=== PATIENT | female | born 1985 | race Caucasian/White ===

== ENCOUNTER 2024-11-20 17:23 | Outpatient (CLI) | payer BC ==
[2024-11-20 18:18] LABS: Appearance,Urine Clear (Clear); Bacteria,Urine Occasional /hpf; Bilirubin,Urine Negative (Negative); Blood,Urine Negative (Negative); Budding Yeast,Urine Occasional /hpf; Color,Urine Colorless; Glucose,Urine (UA) Negative (Negative); Ketones,Urine Negative (Negative); Leukocyte Esterase,Urine Trace (Negative); Mucus,Urine Rare /hpf; Nitrite,Urine Negative (Negative); Protein,Urine Negative (Negative); RBC,Urine 5 /hpf (0-5); Specific Gravity,Urine 1.009 (1.001-1.035); Squamous Epithelial Cell,Urine 1 /hpf (0-4); Urobilinogen,Urine <2.0 mg/dL (<2.0); WBC,Urine 3 /hpf (0-5)
[2024-11-20 18:34] LABS: Creatinine,Urine Random 52.4 mg/dL; Protein/Creatinine Ratio,Urine 0.248
[2024-11-20 18:48] LABS: Basophils # (A) 0.07 10*3/uL (0.00-0.10); Basophils % (A) 0.4 %; Eosinophils # (A) 0.27 10*3/uL (0.04-0.35); Eosinophils % (A) 1.7 %; HCT 34.9 % (37.2-46.3); Lymphocytes % (A) 19.4 %; MCH 31.5 pg (27.0-32.0); MCHC 34.4 g/dL (32.0-37.0); MCV 91.6 fL (80.0-97.0); Mean Platelet Volume 11.1 fL (9.5-12.2); Monocytes # (A) 1.03 10*3/uL (0.20-1.00); Monocytes % (A) 6.5 %; Neutrophils # (A) 11.21 10*3/uL (1.80-7.70); Neutrophils % (A) 70.4 %; Platelet Count 207 10*3/uL (140-440); RBC 3.81 10*6/uL (4.10-5.20); RDW 13.2 % (11.5-14.5); WBC 15.94 10*3/uL (4.50-10.00)
[2024-11-20 18:55] LABS: ALT 16 U/L (4-34); AST 17 U/L (14-36); African American GFR (CKD) >90 (>60 ml/min/1.73 sqM); Blood Urea Nitrogen 8 mg/dL (7-17); LDH 130 U/L (120-246); Non-African American GFR(CKD) >90 (>60 ml/min/1.73 sqM); Uric Acid 5.2 mg/dL (3.7-7.4)
[2024-11-20 19:02] LABS: INR 0.8 (<1.2); Partial Thromboplastin Time 21.5 sec (22.0-30.0); Prothrombin Time 9.6 sec (10.0-12.5)
[2024-11-20 20:25] VITALS: BP 155/89; PULSE 75; RESP 16; TEMP 98.2
--- NOTE | 2024-12-15 15:02 | P.MSEPDOC ---
Presenting Problems - Arrival Data Date of Arrival on Unit: 11/20/24 Time of Arrival on Unit: 17:23 Mode of Transport: Ambulatory - Complaint OB-Reason for Admission/Chief Complaint: Decreased Movement Comment: Pt states she last felt movement yesterday afternoon. Pt states she has GDM diet controlled and b/p slightly elevated in office last appt but nothing further was needed at that time. Medical History - Information : 5 Para: 0 Term: 0 : 0 Abortions: Spontaneous or Elective: 4 Number of Living Children: 0 - Gestational Age Gestational Age by FRANK (wks/days): 29 Weeks and 2 Days - History Complications: GDM Review of Systems - Review of Systems Constitutional: No problems Breast: No problems ENT: No problems Cardiovascular: No problems Respiratory: No problems Gastrointestinal: No problems Genitourinary: No problems Musculoskeletal: No problems Neurological: No problems Skin: No problems Vital Signs - Temperature Temperature: 98.2 F Temperature Source: Temporal Artery Scan - Pulse Pulse Oximetery Pulse Rate: 75 Pulse Assessment Method: Pulse Oximetry - Respirations Respiratory Rate: 16 Oxygen Delivery Method: Room Air - Blood Pressure Right Arm Blood Pressure: 155/89 Blood Pressure Mean: 111 Blood Pressure Source: Automatic Cuff Medical Screen Scoring - Cervical Exam Membranes: Intact - Uterine Contractions Intensity: Absent Resting: Soft to palpation - Assessment - Baby A Baseline FHR: 155 Heart Rate - NICHD Category: Category I (Normal) NST: Reactive Physician Notification - Physician Notified Physician Notified Date: 11/20/24 Physician Notified Time: 17:55 Physician: Yakelin Davis Maternal Triage Index - Maternal Triage Index Presenting for scheduled procedure w/no complaint: No - Stat/Priority 1 Stat Priority 1: No - Urgent/Priority 2 Urgent Priority 2: Yes Provider Notified: Yakelin Davis Provider Notified Time: 17:55 Criteria Met for Priority 2: Pt states she last felt movement yesterday afternoon. Pt states she has GDM diet controlled and b/p slightly elevated in office last appt but nothing further was needed at that time. Disposition - Disposition OB Disposition: Discharge to home Discharge Date: 11/20/24 Discharge Time: 19:14 I agree with the RN Medical Screening Exam: Yes Physician's MSE Comment: I have neither seen nor examined the patient Case reviewed; plan agreed upon as documented in EMR&OBIX.: Yes Diagnosis: RELATED CONDITIONS, UNSPECIFIED, THIRD TRIMESTER
== END 2024-11-20 19:14 | disposition home or self-care (01) ==
LOC: FBPOP 17:23
PROVIDERS: ATTEND Obstetrics & Gynecology Obstetrics
DX: O26.893 Other specified pregnancy related conditions, third trimester (principal); Z3A.29 29 weeks gestation of pregnancy
CPT/HCPCS: 59025; 81001; 82565; 82570; 83615; 84156; 84450; 84460; 84520; 84550; 85025; 85384; 85610; 85730; 99213

== ENCOUNTER 2025-01-18 10:30 | Inpatient (IN) | payer BC ==
[2025-01-18] MEDS ORDERED: hydrALAZINE HCL 20 MG/ML 1 ML VIAL IVP PRN (11:01)
[2025-01-18] MEDS ORDERED: LABETALOL 5 MG/ML VIAL MDV IVP PRN ×4 (11:01→15:50)
[2025-01-18] MEDS: LABETALOL 5 MG/ML VIAL MDV IVP PRN ×2 (11:20→11:57)
[2025-01-18 11:22] LABS: Basophils # (A) 0.05 10*3/uL (0.00-0.10); Basophils % (A) 0.4 %; Eosinophils # (A) 0.13 10*3/uL (0.04-0.35); Eosinophils % (A) 0.9 %; HCT 37.3 % (37.2-46.3); HGB 12.9 g/dL (12.0-15.0); Lymphocytes # (A) 2.51 10*3/uL (0.90-5.00); Lymphocytes % (A) 18.1 %; MCH 31.2 pg (27.0-32.0); MCHC 34.6 g/dL (32.0-37.0); MCV 90.1 fL (80.0-97.0); Monocytes # (A) 0.83 10*3/uL (0.20-1.00); Monocytes % (A) 6.0 %; Neutrophils # (A) 10.11 10*3/uL (1.80-7.70); Neutrophils % (A) 72.9 %; Platelet Count 183 10*3/uL (140-440); RBC 4.14 10*6/uL (4.10-5.20); RDW 13.8 % (11.5-14.5); WBC 13.86 10*3/uL (4.50-10.00)
[2025-01-18 11:26] LABS: Glucose,Whole Blood 80 mg/dL (70-110)
[2025-01-18 11:40] LABS: Bacteria,Urine Rare /hpf; Bilirubin,Urine Negative (Negative); Blood,Urine Large (Negative); Color,Urine Yellow; Glucose,Urine (UA) Negative (Negative); Hyaline Casts,Urine 1 /lpf (0-2); Ketones,Urine Trace (Negative); Leukocyte Esterase,Urine Trace (Negative); Mucus,Urine Rare /hpf; Nitrite,Urine Negative (Negative); PH, Urine 7.0 (5.0-8.0); Protein,Urine Trace (Negative); RBC,Urine >182 /hpf (0-5); Specific Gravity,Urine 1.007 (1.001-1.035); Squamous Epithelial Cell,Urine <1 /hpf (0-4); Urobilinogen,Urine <2.0 mg/dL (<2.0); WBC,Urine 8 /hpf (0-5)
[2025-01-18 11:47] LABS: INR 0.8 (<1.2); Prothrombin Time 9.4 sec (10.0-12.5)
[2025-01-18 11:56] LABS: ALT 15 U/L (4-34); African American GFR (CKD) >90 (>60 ml/min/1.73 sqM); Non-African American GFR(CKD) >90 (>60 ml/min/1.73 sqM); Uric Acid 5.9 mg/dL (3.7-7.4)
[2025-01-18 12:03] LABS: Partial Thromboplastin Time 20.9 sec (22.0-30.0)
[2025-01-18] MEDS ORDERED: METHYLERGONOVINE 0.2 MG/ML 1 ML AMP IM PRN (12:04)
[2025-01-18] MEDS ORDERED: OXYTOCIN 10 UNIT/ML 1 ML VIAL IM PRN (12:04)
[2025-01-18] MEDS ORDERED: CARBOPROST TROMETHAMINE 250 MCG/ML 1 ML AMP IM PRN (12:04)
[2025-01-18] MEDS ORDERED: TRANEXAMIC 1,000 MG/100ML-NACL 1,000 MG in EMPTY BAG 1 BAG IV PRN (12:04)
[2025-01-18 12:08] LABS: Magnesium 1.6 mg/dL (1.6-2.3)
[2025-01-18 12:09] LABS: AST 27 U/L (14-36); LDH 244 U/L (120-246)
[2025-01-18] MEDS: LABETALOL 200 MG TAB PO STA ×2 (12:13→20:17)
[2025-01-18] MEDS ORDERED: OXYTOCIN 30 UNITS/500 ML NS 30 UNIT in SALINE 1 500ML.BAG IV SCH (12:15)
[2025-01-18] MEDS: CITRIC ACID-SODIUM CITRATE 15 ML CUP PO ONE (12:16)
[2025-01-18] MEDS ORDERED: ONDANSETRON 4 MG/2 ML VIAL ONE (12:21)
[2025-01-18] MEDS ORDERED: OXYTOCIN 30 UNITS/500 ML NS BAG IV ONE (12:21)
[2025-01-18] MEDS ORDERED: NALBUPHINE (ANES) 10 MG/ML - 1 ML AMP ONE (12:21)
[2025-01-18] MEDS ORDERED: MORPHINE SULFATE (PF) 0.3 MG/0.3 ML SYR ONE (12:21)
[2025-01-18] MEDS ORDERED: PHENYLEPHRINE-0.9% NACL SYG 1,000 MCG/10 ML SYRINGE ONE (12:21)
[2025-01-18 12:28] LABS: Protein/Creatinine Ratio,Urine 2.312
[2025-01-18] MEDS ORDERED: ZOLPIDEM 5 MG TAB PO PRN (13:10)
[2025-01-18] MEDS ORDERED: NALOXONE 0.4 MG/ML 1 ML VIAL IV PRN (13:10)
[2025-01-18] MEDS ORDERED: diphenhydrAMINE 50 MG/ML 1 ML VIAL IVP PRN ×2 (13:10)
[2025-01-18] MEDS ORDERED: diphenhydrAMINE 25 MG CAP PO PRN (13:10)
[2025-01-18] MEDS ORDERED: SIMETHICONE 80 MG CHEWABLE PO PRN (13:10)
--- NOTE | 2025-01-18 13:35 | P.OP ---
Date of Procedure: 01/18/25 Preoperative Diagnosis: IUP at 37-5/7 weeks, preeclampsia with severe features, AMA, GDM A1 Postoperative Diagnosis: Same Procedure(s) Performed: Primary low-transverse section Anesthesia: spinal Surgeon: Inga Mcneill Management Psychologist #1: Andi Fenton Estimated Blood Loss (ml): 391 IV fluids (ml): 1,400 Urine output (ml): 50 (clear yellow) Pathology: other (Placenta) Condition: stable Disposition: observation Indications for Procedure: 39-year-old 5 para 0 at 37-5/7 weeks seen in the office today for routine visit with elevated blood pressures of 150/90. She was seen in OB triage with noted elevated blood pressures 150s to 200s over 100s. Patient denies signs or symptoms of preeclampsia. Preeclampsia labs were noted to be negative. Patient was counseled on blood pressures in severe range and unfavorable cervix. Patient and significant other were counseled on recommendation for primary secondary to preeclampsia with severe features and unfavorable cervix. Magnesium GTT is discussed and questions are answered. Via patient centered decision making decision was made to proceed with primary low-transverse section Operative Findings: Viable male infant delivered at 1244, weight of 7 pounds 8 ounces Description of Procedure: The patient was prepped and draped in the usual fashion after spinal anesthesia was administered by the anesthesia department. A Pfannenstiel incision was made and extended of the abdominal cavity without difficulty. The bladder peritoneum was elevated and incised and reflected distally. A 2 cm incision was made in the transverse plane of the lower uterine segment to enter the uterus at which time clear fluid was noted. The incision was extended in both directions using the bandage scissors. The head was encountered within the field and delivered up and through the incision where the nose and mouth were thoroughly suctioned. Remainder of the infant was delivered onto the surgical field where the cord was doubly clamped, cut, and the infant was passed for resuscitative measures with weight noted above. The placenta was delivered manually, intact, and was grossly normal with a grossly normal three-vessel cord. The uterus was exteriorized and the interior cavity of the uterus swept of any remaining placental and membranous fragments with a laparotomy sponge. The margins of the incision were grasped with Allis clamps and the incision closed in 2 layers. First layer was a running locking layer of 0 Vicryl from margin to margin followed by a second layer of imbricating 0 Vicryl from margin to margin. Any small points of bleeding were then made hemostatic with the Bovie. Once hemostasis was achieved, the posterior cul-de-sac was suctioned with a guard and the uterine and ovarian findings are as noted above. The uterus was replaced within the abdominal cavity and the gutters swept of any remaining blood fluid or clot. The incision was again reexamined and hemostasis was noted to be excellent. Any small point of bleeding were made hemostatic with the Bovie. Once hemostasis was achieved the parietal peritoneum was loosely reapproximated. The layer of muscles were examined and made hemostatic with the Bovie. Attention was then turned to the fascia which was closed with 2 running stitches of 0 Vicryl in a running fashion from 1 lateral edge to the other. The subcutaneous tissues were irrigated, made hemostatic with the Bovie, and reapproximated with a running stitch of 30 Vicryl. The skin was reapproximated with Vicryl. Estimated blood loss for the case was approximately 391 mL. All sponge instrument and needle counts are correct. There were no complications. The patient tolerated the procedure well and proceeded to the recovery room in stable condition. Both mother and are resting comfortably in recovery.
--- NOTE | 2025-01-18 13:36 | P.HPOB ---
History of Present Illness H&P Date: 01/18/25 Chief Complaint: IUP @ 37 5/7, sever pre eclampsia 39-year-old 5 para 0-0-4-0 at 37-5/7 weeks at presents to labor and delivery from the office with noted elevated pressures 150/90. Patient denies signs or symptoms of preeclampsia. Upon initial presentation to labor and delivery elevated blood pressures were noted 170s to 200s over high 100s. Patient continues to deny signs or symptoms of preeclampsia. Patient has been receiving routine care which has been complicated by diagnosis of gestational diabetes which has been diet controlled. Patient was examined in OB triage and found to be 1 thick high firm and posterior cervix, unfavorable. On blood work this patient is a blood type of A+, rubella status immune, hepatitis B surface had a negative, HIV negative, RPR is nonreactive, GBS culture negative, hepatitis C antibody nonreactive Review of Systems Constitutional: Denies chills, Denies fatigue, Denies fever Ears, nose, mouth and throat: Denies headache Cardiovascular: Reports leg edema Respiratory: Denies dyspnea Gastrointestinal: Denies nausea, Denies vomiting Genitourinary: Reports Past Medical History History of Any Multi-Drug Resistant Organisms: None Reported Smoking Status: Never smoker Medications and Allergies Home Medications Medication Instructions Recorded Confirmed Type Aspirin 81 mg PO DAILY 11/20/24 01/18/25 History Vit No.179/Iron/Folic 1 tab PO DAILY 11/20/24 01/18/25 History [ Tablet] Allergies Allergy/AdvReac Type Severity Reaction Status Date / Time No Known Allergies Allergy Verified 11/20/24 17:27 Exam Osteopathic Statement: *. No significant issues noted on an osteopathic structural exam other than those noted in the History and Physical/Consult. Vital Signs Temp Pulse Resp BP Pulse Ox 01/18/25 10:36 96.7 F L 67 16 169/109 99 Intake and Output 01/17/25 01/18/25 01/18/25 22:59 06:59 14:59 Other: Weight 98.43 kg Targeted physical exam is performed this date in general is a well-nourished well-developed female in no acute distress, breathing appears nonlabored, abdomen is gravid, heart tones are noted to be category 1 and she is coleen irregularly. Recent blood pressure 175/93 after 20 mg of labetalol IV. Cervical exam per RN 1 thick high vertex presentation no presenting part in the pelvis Results Result Diagrams: 01/18/25 10:55 01/18/25 10:55 Abnormal Lab Results - Last 24 Hours (Table) 01/18/25 01/18/25 Range/Units 10:55 11:06 WBC 13.86 H (4.50-10.00) 10*3/uL Immature Gran # 0.23 H (0.00-0.04) 10*3/uL Neutrophils # 10.11 H (1.80-7.70) 10*3/uL Urine Protein Trace H (Negative) Urine Ketones Trace H (Negative) Urine Blood Large H (Negative) Ur Leukocyte Esterase Trace H (Negative) Urine RBC >182 H (0-5) /hpf Urine WBC 8 H (0-5) /hpf Urine Bacteria Rare H (None) /hpf Urine Mucus Rare H (None) /hpf Assessment and Plan (1) Severe preeclampsia Current Visit: Yes Status: Acute Code(s): O14.10 - SEVERE PRE-ECLAMPSIA, UNSPECIFIED TRIMESTER SNOMED Code(s): 81290836 (2) Term Current Visit: Yes Status: Acute Code(s): Z34.90 - ENCNTR FOR SUPRVSN OF NORMAL , UNSP, UNSP TRIMESTER SNOMED Code(s): 33916600 (3) AMA (advanced maternal age) primigravida 35+ Current Visit: Yes Status: Acute Code(s): O09.519 - SUPERVISION OF ELDERLY PRIMIGRAVIDA, UNSPECIFIED TRIMESTER SNOMED Code(s): 74315791 (4) GDM (gestational diabetes mellitus), class A1 Current Visit: Yes Status: Acute Code(s): O24.410 - GESTATIONAL DIABETES MELLITUS IN , DIET CONTROLLED SNOMED Code(s): 74891871 Plan: 39-year-old 5 para 0 at 37-5/7 weeks admitted with severe preeclampsia. Preeclampsia labs are ordered in addition to protein creatinine ratio. Patient is counseled on blood pressures and unfavorable cervix. Recommendations for primary are discussed. IV magnesium to be begun immediately after section is completed. Questions are answered, patient centered decision making regarding primary C- section. Patient wishes to wait for significant other who should be arriving soon.
[2025-01-18] MEDS: MAGNESIUM SULFATE-WATER PMX 4 GM in WATER FOR INJECTION 1 100ML.BAG IVPB ONE (13:53)
[2025-01-18] MEDS: METOCLOPRAMIDE 5 MG/ML 2 ML VIAL IVP PRN (13:59)
[2025-01-18] MEDS: MAGNESIUM SULFATE-WATER PMX 20 GM in WATER FOR INJECTION 1 500ML.BAG IV SCH (14:18)
[2025-01-18] MEDS: LABETALOL 200 MG TAB PO SCH (16:01)
[2025-01-18] MEDS: hydrALAZINE HCL 20 MG/ML 1 ML VIAL IVP PRN (16:12)
[2025-01-18] MEDS: ACETAMINOPHEN IV (For NPO) 1,000 MG in EMPTY BAG 1 BAG IVPB ONE (16:28)
[2025-01-18] MEDS: LACTATED RINGERS 1,000 ML IV SCH (16:29)
[2025-01-18] MEDS: ONDANSETRON 4 MG/2 ML VIAL IVP PRN (20:16)
[2025-01-18] MEDS: SENNOSIDES-DOCUSATE SODIUM 1 EACH TAB PO SCH (22:15)
[2025-01-18] MEDS: hydrALAZINE HCL 20 MG/ML 1 ML VIAL IVP STA (22:18)
[2025-01-19] MEDS: ACETAMINOPHEN TAB 500 MG TAB PO SCH (02:48)
[2025-01-19] MEDS: IBUPROFEN 800 MG TAB PO SCH (04:53)
[2025-01-19 06:09] LABS: Basophils # (A) 0.06 10*3/uL (0.00-0.10); Basophils % (A) 0.3 %; Eosinophils # (A) 0.01 10*3/uL (0.04-0.35); Eosinophils % (A) 0.0 %; HCT 32.7 % (37.2-46.3); HGB 11.0 g/dL (12.0-15.0); Lymphocytes # (A) 2.16 10*3/uL (0.90-5.00); Lymphocytes % (A) 10.3 %; MCH 31.1 pg (27.0-32.0); MCHC 33.6 g/dL (32.0-37.0); MCV 92.4 fL (80.0-97.0); Monocytes # (A) 1.14 10*3/uL (0.20-1.00); Monocytes % (A) 5.4 %; Neutrophils # (A) 17.40 10*3/uL (1.80-7.70); Neutrophils % (A) 82.9 %; Platelet Count 190 10*3/uL (140-440); RBC 3.54 10*6/uL (4.10-5.20); RDW 13.6 % (11.5-14.5); WBC 21.00 10*3/uL (4.50-10.00)
[2025-01-19 06:21] LABS: ALT 16 U/L (4-34); AST 23 U/L (14-36); African American GFR (CKD) >90 (>60 ml/min/1.73 sqM); Blood Urea Nitrogen 6 mg/dL (7-17); LDH 199 U/L (120-246); Non-African American GFR(CKD) >90 (>60 ml/min/1.73 sqM)
[2025-01-19 07:16] LABS: Magnesium 5.6 mg/dL (1.6-2.3)
[2025-01-19] MEDS: LABETALOL 100 MG TAB PO SCH (08:25)
[2025-01-19] MEDS: PRENATAL VIT-IRON-FOLIC ACID 1 EACH TABLET PO SCH (08:26)
--- NOTE | 2025-01-19 09:30 | P.PNOBGPC ---
Subjective - Subjective Principal diagnosis: Postop day 1, primary section, severe preeclampsia Interval history: Overall patient is doing well. She remains on magnesium GTT. Urine output remains good and clear. Pain is well-controlled. Patient denies nausea or vomiting. 50s to 160s over 80s. Patient remains on labetalol and Procardia. Hydralazine is being used for breakthrough blood pressures 170/100. Lochia is noted to be minimal. Patient reports: Reports appetite normal, Reports voiding normally, Reports pain well controlled, Reports ambulating normally [place]: other (in SCN on oxygen) Objective - Vital Signs Latest vital signs: Vital Signs Temp Pulse Resp BP Pulse Ox 01/19/25 06:00 155/88 01/19/25 05:00 16 166/86 01/19/25 04:00 89 16 166/88 01/19/25 03:00 97.8 F 91 15 168/87 01/19/25 02:00 16 168/87 01/19/25 01:00 89 16 158/80 01/19/25 00:00 98.5 F 82 16 177/88 01/18/25 23:00 82 16 143/87 97 01/18/25 22:00 82 16 178/98 01/18/25 21:00 82 16 172/108 01/18/25 20:00 96.5 F L 72 16 173/103 95 01/18/25 19:00 67 16 157/90 01/18/25 18:00 79 16 158/94 01/18/25 17:00 68 168/91 01/18/25 16:18 60 169/95 01/18/25 16:15 60 167/87 01/18/25 15:12 59 L 16 159/64 98 01/18/25 14:57 145/98 01/18/25 14:42 65 146/85 01/18/25 14:27 61 16 159/83 01/18/25 14:12 64 135/80 01/18/25 13:57 90 16 127/75 01/18/25 13:42 69 16 124/66 98 01/18/25 13:18 73 16 121/63 97 01/18/25 13:12 97.1 F L 73 16 121/63 96 01/18/25 10:36 96.7 F L 67 16 169/109 99 Intake and Output 01/18/25 01/19/25 01/19/25 22:59 06:59 14:59 Intake Total 990 Output Total 1392 700 Balance -1392 290 Intake: IV 560 Oral 430 Output: Urine 1350 700 Output, Quantitative 42 Blood Loss Other: Voiding Method Indwelling Catheter - Exam Extremities: Present: normal, edema Abdomen: Present: normal appearance, soft Incision: Present: normal, dry, intact Uterus: Present: normal, firm - Labs Labs: Abnormal Lab Results - Last 24 Hours (Table) 01/18/25 01/18/25 01/18/25 Range/Units 10:55 10:55 10:55 WBC 13.86 H (4.50-10.00) 10*3/uL RBC (4.10-5.20) 10*6/uL Hgb (12.0-15.0) g/dL Hct (37.2-46.3) % Immature Gran # 0.23 H (0.00-0.04) 10*3/uL Neutrophils # 10.11 H (1.80-7.70) 10*3/uL Monocytes # (0.20-1.00) 10*3/uL Eosinophils # (0.04-0.35) 10*3/uL PT 9.4 L (10.0-12.5) sec APTT 20.9 L (22.0-30.0) sec BUN (7-17) mg/dL Creatinine 0.43 L (0.52-1.04) mg/dL Magnesium (1.6-2.3) mg/dL Urine Protein (Negative) Urine Ketones (Negative) Urine Blood (Negative) Ur Leukocyte Esterase (Negative) Urine RBC (0-5) /hpf Urine WBC (0-5) /hpf Urine Bacteria (None) /hpf Urine Mucus (None) /hpf 01/18/25 01/19/25 01/19/25 Range/Units 11:06 05:11 05:11 WBC 21.00 H (4.50-10.00) 10*3/uL RBC 3.54 L (4.10-5.20) 10*6/uL Hgb 11.0 L (12.0-15.0) g/dL Hct 32.7 L (37.2-46.3) % Immature Gran # 0.23 H (0.00-0.04) 10*3/uL Neutrophils # 17.40 H (1.80-7.70) 10*3/uL Monocytes # 1.14 H (0.20-1.00) 10*3/uL Eosinophils # 0.01 L (0.04-0.35) 10*3/uL PT (10.0-12.5) sec APTT (22.0-30.0) sec BUN 6 L (7-17) mg/dL Creatinine 0.43 L (0.52-1.04) mg/dL Magnesium 5.6 H* (1.6-2.3) mg/dL Urine Protein Trace H (Negative) Urine Ketones Trace H (Negative) Urine Blood Large H (Negative) Ur Leukocyte Esterase Trace H (Negative) Urine RBC >182 H (0-5) /hpf Urine WBC 8 H (0-5) /hpf Urine Bacteria Rare H (None) /hpf Urine Mucus Rare H (None) /hpf Assessment and Plan (1) Severe preeclampsia Current Visit: Yes Status: Acute Code(s): O14.10 - SEVERE PRE-ECLAMPSIA, UNSPECIFIED TRIMESTER SNOMED Code(s): 88011036 (2) Term Current Visit: Yes Status: Acute Code(s): Z34.90 - ENCNTR FOR SUPRVSN OF NORMAL , UNSP, UNSP TRIMESTER SNOMED Code(s): 94265813 (3) AMA (advanced maternal age) primigravida 35+ Current Visit: Yes Status: Acute Code(s): O09.519 - SUPERVISION OF ELDERLY PRIMIGRAVIDA, UNSPECIFIED TRIMESTER SNOMED Code(s): 96352397 (4) GDM (gestational diabetes mellitus), class A1 Current Visit: Yes Status: Acute Code(s): O24.410 - GESTATIONAL DIABETES MELLITUS IN , DIET CONTROLLED SNOMED Code(s): 59425826 (5) Status post section Current Visit: Yes Status: Acute Code(s): Z98.891 - HISTORY OF UTERINE SCAR FROM PREVIOUS SURGERY SNOMED Code(s): 258479415 Plan: Patient overall is doing well postoperatively. Blood pressures remain stable Continue labetalol 300mg and Procardia 60mg XL Preeclampsia labs remain normal continue magnesium GTT until 24 hours At that time will consuelo Heaton
--- NOTE | 2025-01-19 10:14 | P.PN ---
Progress Note - Text Adequate analgesia. No anesthetic complication.
[2025-01-19] MEDS ORDERED: IBUPROFEN 800 MG TAB PO SCH (16:00)
--- NOTE | 2025-01-20 08:25 | P.DS ---
Providers Date of admission: 01/18/25 11:14 Expected date of discharge: 01/20/25 Attending physician: Inga Mcneill Primary care physician: Stated None - Discharge Diagnosis(es) (1) Severe preeclampsia Current Visit: Yes Status: Acute (2) Term Current Visit: Yes Status: Acute (3) AMA (advanced maternal age) primigravida 35+ Current Visit: Yes Status: Acute (4) GDM (gestational diabetes mellitus), class A1 Current Visit: Yes Status: Acute (5) Status post section Current Visit: Yes Status: Acute Hospital Course: This is a 39-year-old 5 now para 1-0-4-1 that presented to labor and delivery on 725 from the office with noted elevated blood pressure 150/90. Patient had subsequent significantly elevated blood pressures in triage highest being 200s over 100s. Patient denies signs or symptoms of preeclampsia at that time. Preeclampsia labs were drawn and found to be normal. Patient had a very unfavorable cervix at that time 1 thick very high firm and posterior. Patient was counseled on blood pressures and need for urgent delivery secondary to severe preeclampsia. Patient and significant other decided to proceed with primary after patient centered decision making was performed. For full details in this patient please see the dictated history and physical. Patient was taken back to the operating suite where viable male infant was delivered at 1244, weight of 7 pounds 8 ounces, Apgars of 7 and 8 at 1 and 5 minutes respectively. For full details on the please see the dictated operative report. Patient's postoperative course has been complicated by blood pressure management. On this postoperative day #2 blood pressures have been well- controlled for the last 24 hours. Patient is currently on labetalol 300 mg twice daily along with Procardia 60 mg once daily. Blood pressures have been 130s over 80s. Patient's infant was transferred to [facility] last evening secondary to respiratory distress. Patient is ambulating and voiding without difficulty. Her pain has been well- controlled with oral ibuprofen. Lochia is minimal. She is tolerating a regular diet. She is anxious for discharge as her infant was transferred to [facility]. Patient Condition at Discharge: Good Plan - Discharge Summary New Discharge Prescriptions: No Action Aspirin 81 mg PO DAILY Vit No.179/Iron/Folic [ Tablet] 1 tab PO DAILY Discharge Medication List Aspirin 81 mg PO DAILY 11/20/24 [History] Vit No.179/Iron/Folic [ Tablet] 1 tab PO DAILY 11/20/24 [History] Follow up Appointment(s)/Referral(s): Inga Mcneill DO [Doctor of Osteopathic Medicine] - 02/28/25 1:45 pm Patient Instructions/Handouts: (DC), (GEN) Activity/Diet/Wound Care/Special Instructions: No tub baths or intercourse until 6 weeks postoperatively. Weight lifting restrictions of 10 pounds until postoperative appointment. No driving until postoperative appointment. Ibuprofen 600 mg or 3 tablets every 6 hours as needed for pain. Postoperative/blood pressure check in 3 days. Discharge Disposition: HOME SELF-CARE
[2025-01-20 08:45] VITALS: PULSE 78; RESP 18; TEMP 97.8
[2025-01-20 08:47] VITALS: BP 134/74
== END 2025-01-20 10:35 | disposition home or self-care (01) | DRG 786 ==
LOC: FBPOP 10:30 → 4FBP 11:14
PROVIDERS: ADMIT Obstetrics & Gynecology Obstetrics; ATTEND Obstetrics & Gynecology Obstetrics
PROC: 10D00Z1 Extraction of Products of Conception, Low, Open Approach (ICD-10-PCS; principal; 2025-01-18 12:44)
DX: O14.14 Severe pre-eclampsia complicating childbirth (principal); O34.33 Maternal care for cervical incompetence, third trimester; O24.420 Gestational diabetes mellitus in childbirth, diet controlled; Z37.0 Single live birth; Z79.82 Long term (current) use of aspirin; Z3A.37 37 weeks gestation of pregnancy
CPT/HCPCS: 81001; 82565; 82570; 83615; 83735; 84156; 84450; 84460; 84520; 84550; 85025; 85610; 85730; 99215